=== PATIENT | female | born 1960 | race American Indian/Alaskan Native ===

== ENCOUNTER 2017-02-07 08:04 | Outpatient (CLI) | payer OTHER ==
--- NOTE | 2017-02-07 11:40 | Mammography Report ---
BILATERAL DIGITAL DIAGNOSTIC MAMMOGRAM with CAD and RIGHT BREAST ULTRASOUND: 02/07/17 08:15:00 CLINICAL: Right breast lump. COMPARISON:None. FINDINGS: The breasts are mostly fatty with scattered bilateral upper outer fibroglandular densities. Asymmetric fibroglandular densities in the upper-outer right breast.No mass, suspicious architectural distortion or suspicious calcifications . No mammographic finding as a right periareolar palpable marker. Ultrasound of the right breast demonstrated skin thickening and an irregular hypoechoic intradermal lesion at 3 o'clock at the areola. The skin measures 5 mm in thickness and the hypoechoic lesion measures 5 x 2 x 2 mm. No other mass or cyst. Ultrasound of the right axilla demonstrated no suspicious lymph nodes. A 9 mm lymph node with central fat and benign morphology. IMPRESSION: A 5 mm benign sebaceous cyst at 3 o'clock which correlates with the palpable finding. No suspicious finding. BI-RADS CATEGORY: 2 -- Benign RECOMMENDATION: Clinical follow-up of the palpable area and routine mammographic screening based on ACS guidelines. ACR BI-RADS MAMMOGRAPHIC CODES: 0 = Needs additional imaging evaluation; 1 = Negative; 2 = Benign; 3 = Probably benign; 4 = Suspicious; 5 = Malignant; 6 = Known biopsy-proven malignancy COMMENT: 1. Dense breast tissue, i.e., adenosis, fibrocystic changes, etc., may obscure an underlying neoplasm. 2. Approximately 10% of cancers are not detected with mammography. 3. A negative mammography report should not delay biopsy if a clinically suspicious mass is present. COMMENT: Patient follow-up letters are generated by our [employer] application.
--- NOTE | 2017-02-07 11:48 | Ultrasound Report ---
BILATERAL DIGITAL DIAGNOSTIC MAMMOGRAM with CAD and RIGHT BREAST ULTRASOUND: 02/07/17 08:15:00 CLINICAL: Right breast lump. COMPARISON:None. FINDINGS: The breasts are mostly fatty with scattered bilateral upper outer fibroglandular densities. Asymmetric fibroglandular densities in the upper-outer right breast.No mass, suspicious architectural distortion or suspicious calcifications . No mammographic finding as a right periareolar palpable marker. Ultrasound of the right breast demonstrated skin thickening and an irregular hypoechoic intradermal lesion at 3 o'clock at the areola. The skin measures 5 mm in thickness and the hypoechoic lesion measures 5 x 2 x 2 mm. No other mass or cyst. Ultrasound of the right axilla demonstrated no suspicious lymph nodes. A 9 mm lymph node with central fat and benign morphology. IMPRESSION: A 5 mm benign sebaceous cyst at 3 o'clock which correlates with the palpable finding. No suspicious finding. BI-RADS CATEGORY: 2 -- Benign RECOMMENDATION: Clinical follow-up of the palpable area and routine mammographic screening in one year. ACR BI-RADS MAMMOGRAPHIC CODES: 0 = Needs additional imaging evaluation; 1 = Negative; 2 = Benign; 3 = Probably benign; 4 = Suspicious; 5 = Malignant; 6 = Known biopsy-proven malignancy COMMENT: 1. Dense breast tissue, i.e., adenosis, fibrocystic changes, etc., may obscure an underlying neoplasm. 2. Approximately 10% of cancers are not detected with mammography. 3. A negative mammography report should not delay biopsy if a clinically suspicious mass is present. COMMENT: Patient follow-up letters are generated by our [employer] application.
== END 2017-02-07 08:05 | disposition home or self-care (01) ==
LOC: MAMMO 08:04
DX: N60.81 Other benign mammary dysplasias of right breast (principal); N63.10 Unspecified lump in the right breast, unspecified quadrant; N64.89 Other specified disorders of breast
CPT/HCPCS: 76641; G0204; 77066

== ENCOUNTER 2019-03-20 09:14 | Day surgery (SDC) | payer OTHER ==
[~2019-03-20 09:14] MED LIST: LIDOCAINE MPF (2%) 20 MG/1 ML VIAL 5 ML ONE; SODIUM CHLORIDE 0.9% 1000 ML 1,000 ML IV SCH; WATER FOR IRRIG STERILE 1,000 ML BOTTLE ONE; WATER FOR IRRIG STERILE 250 ML BOTTLE IR ONE
[2019-03-20] MEDS ORDERED: SODIUM CHLORIDE 0.9% 1000 ML 1,000 ML IV SCH (10:00)
--- NOTE | 2019-03-20 10:26 | Anesthesia Consultation ---
Anesthesia Consult and Med Hx Date of service: 03/20/19 - Airway Anesthetic Teeth Evaluation: Poor ROM Head & Neck: Adequate Mental/Hyoid Distance: Adequate Mallampati Class: Class I Intubation Access Assessment: Probably Good - Pulmonary Exam CTA: Yes - Cardiac Exam Cardiac Exam: RRR - Pre-Operative Health Status ASA Pre-Surgery Classification: ASA3 Proposed Anesthetic Plan: MAC - Pulmonary Hx Asthma: Yes Home Oxygen Therapy: No - Cardiovascular System Hx Hypertension: Yes Hx Heart Attack/AMI: No - Central Nervous System Hx Neuromuscular Disorder: No Hx Back Pain: Yes (Pain pump in place) - Gastrointestinal Hx Gastroesophageal Reflux Disease: Yes - Endocrine Hx Liver Disease: No Hx Non-Insulin Dependent Diabetes: No - Other Systems Hx Alcohol Use: No Hx Substance Use: No Hx Obesity: Yes (BMI- 42.6kg) - Additional Comments Anesthesia Medical History Comments: patient denied previous anesthesia related complication.
--- NOTE | 2019-03-20 10:27 | Anesthesia Day of Surgery ---
Anesthesia Day of Surgery - Day of Surgery Patient Examined: Yes Patient H&P Reviewed: Yes Patient is NPO: Yes
[2019-03-20] MEDS ORDERED: fentaNYL 100 MCG/2 ML INJ ONE (10:31)
[2019-03-20] MEDS ORDERED: PROPOFOL 200 MG/20 ML VIAL IV ONE ×2 (10:32)
--- NOTE | 2019-03-20 11:01 | Procedure Note ---
Date of procedure: 03/20/19 Pre-op diagnosis: GERD/ Colon Polyp Screening Post-op diagnosis: other (Mild to Moderate Erosive Esophagitis/Small to Moderate Erosive Esophagitis/Gastritis/No Peptic Ulcer disease noted/Normal Colon Mucosa (no colon polyp or diverticular disease noted)/ Minor,Internal Hemorrhoid) Procedure: EGD with Biopsy and colonoscopy [place] [facility] [place]geon: JYOTSNA CHAVARRIA Estimated blood loss: minimal Pathology: list Specimen disposition: to lab Condition: stable Disposition: same day (Treat with PPI and avoid aspirin and NSAID for 4 days; otherwise resume home medication. Follow up in 1 to 2 weeks ([phone]).)
--- NOTE | 2019-03-20 11:12 | Post Anesthesia Evaluation ---
- Post Anesthesia Evaluation Patient Participated: Yes Airway Patent: Yes Stable Respiratory Function: Yes Nausea/Vomiting: No Temp > 96.8F: Yes Pain Manageable: Yes Adequeate Hydration: Yes Anesthesia Complications: No Block Receding Appropriately: Not Applicable Patient on Ventilator: No
--- NOTE | 2019-03-20 11:21 | Operative Report ---
PROCEDURE: Esophagogastroduodenoscopy with biopsy. INDICATIONS: A 58-year-old -[place] female with an underlying history of diabetes and hypertension, who has been having GERD symptoms. EGD was done to assess for the problem. DESCRIPTION OF PROCEDURE: Procedure was done after getting informed consent with MAC anesthesia. Instrument was passed through the hypopharynx into the esophagus, which showed some mild to moderate erosive esophagitis. Biopsy was done from the distal esophagus to assess for the severity of the erosive esophagitis. The stomach showed a small to moderate hiatal hernia on the retroverted view. Biopsy was done from the gastric antrum, gastric body and angular incisura to rule out for H. pylori and atrophic gastritis. The pylorus was patent. The duodenum in the first and second portion appeared normal. There was no evidence of any peptic ulcer disease noted. ASSESSMENT: Gastroesophageal reflux disease symptoms, mild to moderate erosive esophagitis, small to moderate hiatal hernia, gastritis. No peptic ulcer disease noted. PLAN: To treat the patient with PPI, have the patient avoid aspirin and aspirin-related products for the next few days and a colonoscopy will be done as part of colon polyp screening. The patient will be asked to follow up in the office in 1-2 weeks' time. The procedure was done in the GI lab with the assistance of the GI lab team, which included LAURITA Gaviria, cristiano Savage, and with assistance of anesthesia. JOB# [id number] RODNEY/NIKOLAS
--- NOTE | 2019-03-20 11:30 | Operative Report ---
PROCEDURE: Colonoscopy. INDICATIONS: The patient is a 58-year-old -[place] female with an underlying history of diabetes, hypertension, family history of cancer. A colonoscopy was done to make sure there was not any colon polyps present as part of colon polyp screening. EGD done prior to the colonoscopy because of GERD symptoms that showed a small to moderate hiatal hernia and mild to moderate erosive esophagitis and gastritis, but no peptic ulcer disease was noted. DESCRIPTION OF PROCEDURE: Initial rectal exam was unremarkable. Instrument was passed through the rectum onto the cecum, which was identified with the appendiceal orifice and ileocecal valve. The cecum was also viewed on the retroverted view. No additional pathology was noted. The cecum, ascending colon, transverse colon, descending colon, and sigmoid showed normal mucosa. There was no evidence of any polyps, colitis or diverticular disease. Rectum showed some minor internal hemorrhoid on the retroverted view. ASSESSMENT: Colon polyp screening, no colon polyps noted. No diverticular disease noted. Minor internal hemorrhoid. No cold biopsies were done. There was no bleeding associated with the procedure. PLAN: Ask the patient to resume home medication. Treat the patient with PPI because of the EGD findings of esophagitis, gastritis and in the presence of small to moderate hiatal hernia. The patient will also be advised about lifestyle changes because of the hiatal hernia to minimize the symptoms of GERD symptoms. Procedure was done in the GI lab with assistance of the GI lab team, which included LAURITA Gaviria and Janette quinonez and with assistance of anesthesia. JOB# [id number] RODNEY/NIKOLAS
[2019-03-20 20:25] VITALS: BP 138/78
== END 2019-03-20 09:15 | disposition home or self-care (01) ==
LOC: GIO 09:14
DX: Z12.11 Encounter for screening for malignant neoplasm of colon (principal); K64.8 Other hemorrhoids; K29.50 Unspecified chronic gastritis without bleeding; K21.0 Gastro-esophageal reflux disease with esophagitis; K44.9 Diaphragmatic hernia without obstruction or gangrene; E11.9 Type 2 diabetes mellitus without complications; I10 Essential (primary) hypertension; E78.00 Pure hypercholesterolemia, unspecified; J45.909 Unspecified asthma, uncomplicated; E66.9 Obesity, unspecified; B96.81 Helicobacter pylori [H. pylori] as the cause of diseases classified elsewhere; Z90.710 Acquired absence of both cervix and uterus; Z80.0 Family history of malignant neoplasm of digestive organs; Z79.899 Other long term (current) drug therapy; Z79.4 Long term (current) use of insulin; Z68.41 Body mass index [BMI] 40.0-44.9, adult; Z98.890 Other specified postprocedural states
CPT/HCPCS: 43239; 45378; 82962; 88305; 88342; J2704; J3010

== ENCOUNTER 2019-04-27 08:47 | Outpatient (CLI) | payer OTHER ==
--- NOTE | 2019-04-27 12:58 | Mammography Report ---
DIGITAL SCREENING MAMMOGRAM WITH CAD, 04/27/2019 INDICATION: Routine screening mammography. TECHNIQUE: Digital bilateral 2D mammography was obtained in the craniocaudal and mediolateral obliq ue projections. This examination was interpreted with the benefit of Computer-Aided Detection analysi s. COMPARISON: 02/07/2017 FINDINGS: Breast Density: The breasts are heterogeneously dense, which may obscure small masses. There is no evidence of dominant mass, suspicious calcifications or architectural distortion in eithe r breast. IMPRESSION: No mammographic evidence of malignancy. Follow up recommendation: Routine yearly BI-RADS Category 1: Negative. A "normal" or negative report should not discourage follow up or biopsy of a clinically significant f inding. A written summary of these findings will be mailed to the patient. The patient will be entered into a mammography reporting system which will generate a reminder letter for the patient's next appointmen t at the appropriate interval. The [employer] recommends yearly mammograms starting at age 40 and continuing as l sree as a woman is in good health. Breast MRI is recommended for women with an approximate 20-25% or greater lifetime risk of breast cancer, including women with a strong family history of breast or ova vero cancer or who have been treated for Hodgkin's disease. Signer Name: Harvinder Smith MD Signed: 04/27/2019 12:53 PM Workstation Name: [id number]
== END 2019-04-27 08:48 | disposition home or self-care (01) ==
LOC: MAMMO 08:47
PROVIDERS: ATTEND Family Medicine
DX: Z12.31 Encounter for screening mammogram for malignant neoplasm of breast (principal)
CPT/HCPCS: 77067